=== PATIENT | male | born 1985 | race Caucasian/White ===

== ENCOUNTER → 2018-09-17 | Outpatient (CLI) | payer BC ==
--- NOTE | 2018-09-17 12:44 | MR ---
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 FINDINGS: Normal sinus tarsi fat. Visualized Achilles tendon is within normal limits. Some flexion in the second through fifth toes is present. The Miller's toe is seen. There is varus po sitioning distal fourth and fifth toes. Bone marrow signal intensity is maintained. No suspicious soft tissue swelling or subcutaneous edema. Muscle bulk in the foot is preserved. Lisfranc joints are maintained. There are areas of soft tissue nodularity near the first metatarsal head for reference 1.2 cm lesion coronal image 23 of T1 isointensity to muscle and T2 hyperintensity, smaller proximal nodular lesion abutting plantar fascia 8 mm with similar imaging characteristics coronal image 25, and third 5 mm no dular lesion coronal image 28. Findings could reflect early plantar fibromatosis. There is loss of subcutaneous fat along the plantar surface fifth metatarsal head sagittal image 4 al so isointense to muscle on T1 weighted images slightly hyperintense on T2-weighted images. This area is more prominent measuring 2.0 cm transversely coronal image 18 and 1.8 cm along the length of metat arsal sagittal image 4. This is unusual location for fibromatosis. Other etiologies not excluded. IMPRESSION: Plantar findings as detailed above in last 2 paragraphs. .
== END | disposition home or self-care (01) ==
LOC: RADMRIMAIN 11:11
PROVIDERS: ATTEND Podiatrist Foot & Ankle Surgery
DX: M79.89 Other specified soft tissue disorders (principal); R93.7 Abnormal findings on diagnostic imaging of other parts of musculoskeletal system

== ENCOUNTER → 2022-04-20 | Outpatient (CLI) | payer BC ==
--- NOTE | 2022-04-21 03:58 | MR ---
EXAMINATION TYPE: MR sacroiliac joints wo con DATE OF EXAM: 04/20/2022 COMPARISON: None HISTORY: Right hip pain Multiplanar multiecho imaging of the sacroiliac joints performed with no contrast. There is increased fluid signal on the STIR images in the lateral mass of the right sacrum that measu res 3 x 1.5 cm and adjacent to the sacroiliac joint. The left-sided sacroiliac joint appears normal. There appears to be a linear fracture line in the lateral sacrum which is 5 mm from the SI joint. No increased fluid seen in the sacroiliac joint spaces. There is corresponding increased signal also wit hin the right ilium adjacent to the sacroiliac joint on the STIR images measuring 4.7 x 1 cm. No frac ture line seen. There is minimal edema in the left iliac bone adjacent to the sacroiliac joint. IMPRESSION: There is edema in the bone on both sides of the right sacroiliac joint. There is evidence of a nondis placed fracture of the lateral mass of the sacrum along the right sacroiliac joint. Minimal edema in the left iliac bone adjacent to the sacroiliac joint and could BE stress related phenomenon. No evidence of any significant increased fluid in the SI joints to suggest sacroiliitis.
== END | disposition home or self-care (01) ==
LOC: RADMRIMAIN 11:56
PROVIDERS: ATTEND Internal Medicine Rheumatology
DX: S32.19XA Other fracture of sacrum, initial encounter for closed fracture (principal); M53.3 Sacrococcygeal disorders, not elsewhere classified; M45.0 Ankylosing spondylitis of multiple sites in spine; R60.0 Localized edema; X58.XXXA Exposure to other specified factors, initial encounter
CPT/HCPCS: 72195